=== PATIENT | male | born 1955 | race Caucasian/White ===

== ENCOUNTER 2019-05-17 10:57 | Outpatient (CLI) | payer OTHER, SELFPAY | END 2019-05-17 10:58 | disposition home or self-care (01) | LOC: ANHSURGERY 10:59 | PROVIDERS: PCP Emergency Medicine; Visit Provider Surgery | DX: N44.2 Benign cyst of testis (principal) | CPT/HCPCS: 87086 ==

== ENCOUNTER 2019-05-26 00:33 | Day surgery (SDC) | payer OTHER, SELFPAY ==
[2019-05-13 11:32] VITALS: BMI 25.8
--- NOTE | 2019-05-24 12:41 | PM.SD ---
Same Day Admit/Disch: [facility] History of Present Illness Chief complaint: Left Inguinal Hernia, Spermatocele Narrative: Alon Quiroz is a 64 year old male who has had a bulge in the left groin area for over a year. He was seen in the office and found to have a left inguinal hernia. He is taken to surgery now for repair. Patient also has a right-sided scrotal mass. He saw Dr. Thomas and was diagnosed with an epididymal cyst. He will have right spermatocelectomy with possible orchiopexy at the same operation by Dr. Thomas. [facility] Social History Social History Smoking status: Never smoker Alcohol intake: current Same Day Admit/Disch: Med Pre-admit Medications Home Medications Medication Instructions Recorded Confirmed Type tadalafil 10 mg tablet 10 mg PO DAILY PRN 04/20/19 05/26/19 History multivitamin 1 tablet PO DAILY 05/13/19 05/26/19 History hydrocodone-acetaminophen 1 - 2 tablet PO Q6H PRN #20 tablet 05/26/19 Rx ketorolac 10 mg PO Q6H 4 Days #16 tablet 05/26/19 Rx Exam Const: General: comfortable, no acute distress, alert and awake HENMT: Head: normocephalic and atraumatic Mouth: Yes Normal oral and palatal mucosa present Eyes: Conjunctivae: conjunctivae normal Pupils: Equal, round and reactive pupils present EOM: EOMs intact bilaterally Neck: Neck: normal visual inspection, no lymphadenopathy and nontender Resp: Effort & Inspection: normal respiratory effort Auscultation: clear to auscultation bilaterally Cardio: Rate: regular rate Rhythm: regular rhythm Heart sounds: no gallops, no murmurs and no rubs GI: Inspection: non-distended GI Palp: Yes Soft to palpation, No Tenderness to palpation present (GI), No Hepatomegaly present and No Splenomegaly present : Male General Exam: Yes hernia ( left inguinal hernia, reducible, nontender) Penis: Yes normal penis Scrotum: scrotal mass on the right (shown to be epididymal cyst by scrotal ultrasound) and on the left ( ) mobile Testes: epididymal mass on the right ( see above) Skin: Lesions: no lesions Rashes: no rashes Neuro: General: no focal motor deficits and CN's II-XI intact bilaterally Cranial nerves: Yes Equal, round and reactive pupils present, Yes Bilaterally intact EOM present, Yes facial symmetry and Yes Midline tongue present Speech: normal speech Motor exam (neuro): 5/5 motor strength present throughout and Motor abnormalities not present Extrem: General: no clubbing, cyanosis or edema and edema Psych: Affect: normal affect Thought process: Normal thought process present Insight: Good insight present (Psych) DS: Summary Time Spent with Patient Time attestation: Total time spent providing and/or coordinating discharge services: DS: Diagnosis Admitting Diagnosis Admitting Diagnosis: Benign cyst of testis Discharge Diagnosis (1) Inguinal hernia of left side without obstruction or gangrene: Code(s): K40.90 - Unilateral inguinal hernia, without obstruction or gangrene, not specified as recurrent Status: Chronic Assessment and Plan: we will proceed with left inguinal hernia repair under anesthesia. The procedure the risks the benefits have been discussed with the patient. The likely use of mesh has been discussed. The usual recovery has been discussed. All questions were answered. He understands and agrees to go ahead. (2) Cyst of testis: Code(s): N44.2 - Benign cyst of testis Status: Chronic Assessment and Plan: Management per Dr. Thomas at same procedure. Discharge Plan Discharge Patient Disposition: Home, Self-Care Discharge Instructions: 1. May shower the day after surgery over incision. 2. Call office for: -Wound increasingly painful or bleeding -Vomiting -Fever of greater than 101 degrees 3. Expect some blood on dressing or on skin. 4. If no bowel movement for three days, take 1 oz. (30 ml) Milk of Mag
--- NOTE | 2019-05-25 17:51 | WPDANESEPP ---
Anes - Eval Pre Procedure Procedure: Operation Date: 05/26/19 07:30 Proposed Procedures p Left Inguinal Hernia Repair Adult - Marek Gleason MD s Right Spermatocelectomy, Possible Right Orchiectomy - Yue Thomas MD Date/Time: 05/25/19 17:51 Pre Op Diagnosis: Left Inguinal Hernia, Spermatocele Patient Data Age: 64 Gender: M Height: 1.78 m Weight: 81.65 kg Allergies Allergy/AdvReac Type Severity Reaction Status Date / Time No Known Allergies Allergy Verified 05/13/19 11:33 Home Medications Medication Instructions Recorded Confirmed Type tadalafil 10 mg tablet 10 mg PO DAILY PRN 04/20/19 05/13/19 History multivitamin 1 tablet PO DAILY 05/13/19 05/13/19 History Patient hx anesthesia problems: none Family hx anesthesia problems: none PMFSH Past Medical History Medical History (Updated 05/25/19 @ 17:52 by Ena Anne CRNA) Apneic spell Loud snoring Surgical History Surgical History History of tonsillectomy History of wisdom tooth extraction Social History Social History Smoking status: Never smoker Alcohol intake: current Exam Day of Procedure 05/25/19 17:51
[2019-05-26] VITALS (7 sets, daily range): BP systolic 151–175; BP diastolic 79–98; PULSE 54–74; RESP 11–18; TEMP 36.2–36.6; O2SAT 98–100
[2019-05-26] MEDS: LACTATED RINGERS 1,000 ML 30 ML IV CONT ×2 (06:35→09:56)
--- NOTE | 2019-05-26 06:44 | WPDANESEFPP ---
Anes - Eval Final PreProcedure Day of Procedure 05/26/19 06:44 Patient weight: overweight Heart: regular rate and rhythm Lungs: clear to auscultation Airway: Mallampati scale class 1 Neurological: alert and oriented Last oral intake: >/= 8 hours ASA classification: II Emergent: no Anesthetic plan: proceed Anesthesia type and monitoring: general LMA and standard monitoring Informed Consent: The patient's anesthetic plan and its attendant risks and benefits were discussed with the patient/family/POA. Questions were solicited and answers provided to the satisfaction of the patient/family/POA.
--- NOTE | 2019-05-26 07:04 | WPDHPUPDATE1 ---
History and Physical Update Update Date/Time: 05/26/19 07:04 History and Physical has been reviewed, including an updated exam of the patient. There are NO changes in the patient's condition. Risks, benefits, and alternatives have been discussed and questions answered. Patient agrees to proceed with procedure.
--- NOTE | 2019-05-26 07:27 | PM.HPGS ---
History of Present Illness History of Present Illness Consent: Risks, benefits, and alternatives have been discussed and questions answered. Patient agrees to proceed with procedure. Chief complaint: Left Inguinal Hernia, Spermatocele Narrative: Alon Quiroz is a 64 year old male with rigght scrotal swelling Review of Systems Review of Systems: All systems reviewed & are unremarkable except as noted in HPI and below PMFSH Social History Social History Smoking status: Never smoker Alcohol intake: current Meds Home Medications and Allergies Home Medications Medication Instructions Recorded Confirmed Type tadalafil 10 mg tablet 10 mg PO DAILY PRN 04/20/19 05/26/19 History multivitamin 1 tablet PO DAILY 05/13/19 05/26/19 History Allergies Allergy/AdvReac Type Severity Reaction Status Date / Time No Known Allergies Allergy Verified 05/26/19 06:47 Vital Signs Vital Signs - 24 hr 05/26/19 06:25 Temperature 36.2 C L Pulse Rate 62 Respiratory Rate 18 Blood Pressure 164/79 H Pulse Oximetry 98 Exam Const: General: no acute distress Resp: Effort & Inspection: normal respiratory effort : Other: Right large spermatocele, normal left testis Extrem: General: normal to inspection Assessment and Plan Additional Plan Right spermatocele - plan right spermatocelectomy, possible orchipexy - risks, benefits and alternatives discussed. agrees to proceed
[2019-05-26] MEDS: ceFAZolin 2 GM/D5W 50 ML 2 GM/50 ML BAG IVPB (07:33)
[2019-05-26] MEDS: KETOROLAC 30 MG/ML VIAL (*BKC) IV PUSH (08:42)
--- NOTE | 2019-05-26 10:04 | PM.PROC ---
Procedure Note - Detailed Date of procedure: 05/26/19 Pre-op diagnosis: Left Inguinal Hernia, Spermatocele Left inguinal hernia Post-op diagnosis: same (Indirect hernia) Procedure performed: Repair of left inguinal hernia with 6 cm Parietex hernia mesh system Description of procedure: The patient had a spermatocele removed and an orchiopexy done on the right testicle by Dr. Thomas prior to me repairing his left inguinal hernia. Consequently the patient was already on the operating table under general anesthesia when I arrived in the room. The left groin and genitalia were prepped and draped. Proposed incision was marked on the skin. Local was infiltrated into the skin and the deeper subcutaneous tissues. Incision was made and deepened through the subcutaneous. Crossing veins were cauterized and divided. Dissection was carried through Matthew's fascia down to the external oblique aponeurosis. The aponeurosis was exposed as was the external ring. Additional local anesthesia was infiltrated deep to the aponeurosis in the area of the spermatic cord and inguinal canal contents. The aponeurosis was opened laterally and extended medially through the external ring. The leaves of the aponeurosis were dissected free from the spermatic cord. The ileoinguinal nerve was carefully preserved throughout the dissection and was left attached to the spermatic cord. The cord was then mobilized medially on a [place] drain. The cord was dissected back to the internal ring. Dissection was then carried out in the anteromedial spermatic cord. The hernia sac was found and dissected free. The sac was opened so that I could place a finger within the hernia sac and facilitate this dissection. This opening was then closed with a running 3 0 Vicryl suture. The sac was then dissected back to a high dissection. It was dunked into the retroperitoneum. A 6 centimeter Parietex skagway was chosen. It was folded to form a plug. It was placed in the defect. The edges were sutured to the transversalis fascia with interrupted 3 0 Vicryl suture. The hernia defect was then partially closed with some additional 3 0 Vicryl suture. Patch was then cut to the appropriate size and placed over the inguinal canal floor. The lateral leaves were passed beyond the cord. The cord and ileoinguinal nerve were then laid over the patch. The external oblique aponeurosis was closed with interrupted 3 0 Vicryl suture. Matthew's fascia was closed with interrupted 3 0 Vicryl suture. The subcutaneous was closed with interrupted 4 0 Vicryl suture. Four 0 Vicryl subcuticular skin sutures were placed. The skin was closed finally with a running 4 0 Monocryl skin suture. The wound was dressed with Exofin surgical adhesive. The patient was awakened and taken to recovery in good condition. Sponge and needle counts were correct x2. Anesthesia: GETA and local (0.5% Marcaine with Exparel) Surgeon: Marek Gleason MD [employer] Distributor: Ricky Rojas RN,FA Estimated blood loss (mL): 5 Drains: No Packing: No Pathology: none sent Complications: None Condition: stable Disposition: PACU Findings: Indirect inguinal hernia. No sliding hernia was noted.
--- NOTE | 2019-05-26 11:18 | SUR.PHASEII ---
[address] BRYANT,AWARE OF ELEVATED DIASTOLIC BP 96,PT STATES NOT ON BP MEDS. DR BRYANT OKAYED FOR DISCHARGE AND TO FOLLOWUP WITH PRIMARY MD ABOUT ELEVATED BP.
--- NOTE | 2019-05-26 13:30 | OP_ITS ---
DATE OF PROCEDURE: 05/26/2019 PREOPERATIVE DIAGNOSIS: Right spermatocele. POSTOPERATIVE DIAGNOSIS: Right spermatocele. PROCEDURE PERFORMED: 1. Right spermatocelectomy. 2. Right orchiopexy. INDICATION FOR PROCEDURE: The patient is a very pleasant 64-year-old gentleman. He presents today for right spermatocelectomy at that time of a left inguinal hernia repair. The risks of spermatocelectomy including but not limited to, infection, bleeding, pain, injury to surrounding structures, recurrence, need for additional operations were discussed. Patient understands and agrees to proceed. DESCRIPTION OF PROCEDURE: Informed consent was obtained. The patient was taken to the operating room, given preoperative IV antibiotics. He was shaved and prepped in normal sterile fashion in supine position. Marcaine was injected into the midline and we then made a 3 cm midline scrotal incision. We delivered the right testicle. The tunica vaginalis was opened. This revealed a normal- appearing testicle with approximately 5 cm large spermatocele. We then opened the tunica around the spermatocele. We carefully dissected the spermatocele free from surrounding structures down to the infundibulum to the epididymis. We placed a clamp over the infundibulum, and then the spermatocele was cut and sent as specimen. We then oversewn the infundibulum with a 2-0 Vicryl suture. We then closed the tunica that was covering the potential space over the spermatocele with 3-0 Vicryl suture. At this point, there was good hemostasis. The testicle was mobile. We therefore elected to do orchiopexy. 2-0 Ethibond suture was placed through the tunica albuginea of the testicle and through the dartos layer of the scrotum medially, laterally and inferiorly. This allowed the testicle to sit in the inferior scrotum without risk of future torsion. We then irrigated copiously. There was good hemostasis. We closed the dartos layer with a 2-0 Vicryl suture, deep dermal layer with 3-0 Vicryl suture, and 3-0 chromic horizontal mattress skin closure. The case was then turned over to Dr. Gleason. ESTIMATED BLOOD LOSS: Minimal. COMPLICATION: None. FOLLOWUP: The patient will follow up in the office in 1 month. D I MT: Arianne ZUÑIGA
== END 2019-05-26 11:52 | disposition home or self-care (01) ==
PROVIDERS: Urology; PCP Emergency Medicine; Visit Provider Surgery
PROC: (CPT 49505; principal; 2019-05-26 07:30)
PROC: (CPT 54840; 2019-05-26 07:30)
DX: N43.41 Spermatocele of epididymis, single (principal); K40.90 Unilateral inguinal hernia, without obstruction or gangrene, not specified as recurrent
CPT/HCPCS: 54840; 54640; 49505; 88304; A9270; C1781; C9290; J0131; J0690; J1100; J1885; J2250; J2405; J2704; J3010; J7120

== ENCOUNTER 2020-06-27 16:05 | Outpatient (CLI) | payer OTHER, SELFPAY | END 2020-06-27 16:06 | disposition home or self-care (01) | LOC: ANHCOVIDVC 16:05 | PROVIDERS: PCP Emergency Medicine | DX: Z23 Encounter for immunization (principal) | CPT/HCPCS: 0001A; 91300 ==

== ENCOUNTER 2020-07-18 16:06 | Outpatient (CLI) | payer OTHER, SELFPAY | END 2020-07-18 16:07 | disposition home or self-care (01) | LOC: ANHCOVIDVC 16:06 | PROVIDERS: PCP Emergency Medicine | DX: Z23 Encounter for immunization (principal) | CPT/HCPCS: 0002A; 91300 ==

== ENCOUNTER → 2020-09-13 14:43 | Outpatient (CLI) | payer OTHER, SELFPAY ==
--- NOTE | ~2020-09-13 | XR_ITS ---
XR thoracic spine 2V DATE: 09/13/2020 15:12 INDICATION: Thoracic back pain TECHNIQUE: AP, lateral, swimmer views COMPARISON: None FINDINGS: Diffuse osteopenia. There is moderate degenerative disc disease at C4-5 and severe degenerative disease at C5-6 and C6-7. There is mild degenerative spurring of the thoracic spine. No fracture or dislocation or bone destruction. The thoracic pedicles are intact. No paraspinal soft tissue thickening. IMPRESSION: Osteopenia Degenerative changes of the cervical and thoracic spine No thoracic spine fracture is evident Reviewed, dictated and finalized at location A.
== END ==
PROVIDERS: PCP Emergency Medicine; Visit Provider Emergency Medicine
DX: M54.9 Dorsalgia, unspecified (principal); M85.88 Other specified disorders of bone density and structure, other site
CPT/HCPCS: 72070